=== PATIENT | female | born 1980 | race Caucasian/White ===

== ENCOUNTER 2019-12-14 07:34 | Day surgery (SDC) | payer OTHER ==
[~2019-12-14 07:34] MED LIST: RINGERS SOLUTION,LACTATED 1,000 ML IV ONE
[2019-12-14 08:18] LABS: EOSINOPHILS % (AUTO) 5.7 % (1.0-6.0); HEMATOCRIT 47.8 % (36-46); HEMOGLOBIN 15.8 g/dL (12.0-16.0); LYMPHOCYTES # (AUTO) 2.9 K/uL (1.0-4.8); LYMPHOCYTES % (AUTO) 39.9 % (22.0-44.0); MEAN CORPUSCULAR HEMOGLOBIN 29.3 pg (26.0-34.0); MEAN CORPUSCULAR HGB CONC 33.1 G/dL (31.0-37.0); MEAN CORPUSCULAR VOLUME 89 fL (80-100); MONOCYTES # (AUTO) 0.6 K/uL (0.1-1.0); MONOCYTES % (AUTO) 8.7 % (2.0-9.0); NEUTROPHILS # (AUTO) 3.3 K/uL (1.8-7.7); NEUTROPHILS % (AUTO) 44.7 % (40.0-70.0); PLATELET COUNT (AUTO) 235 K/uL (150-450); RED CELL DISTRIBUTION WIDTH 13.6 % (11.5-14.5)
[2019-12-14 08:27] LABS: ANION GAP 3 mmol/L (8-16); CALCIUM, TOTAL 9.7 mg/dL (8.8-10.5); CARBON DIOXIDE 32 mmol/L (22-29); CHLORIDE 103 mmol/L (98-107); CREATININE 0.88 mg/dL (0.60-1.30); GLOMERULAR FILTR. RATE CALC > 60 mL/min (>60); GLUCOSE,RANDOM 106 mg/dL (70-110); POTASSIUM 4.6 mmol/L (3.5-5.1); SODIUM SERUM 138 mmol/L (136-145); UREA NITROGEN, BLOOD 8 mg/dL (7-18)
[2019-12-14 08:32] LABS: PROTHROMBIN TIME 10.3 SEC (9.4-11.6)
[2019-12-14 08:34] LABS: ALANINE AMINOTRANSFERASE 199 U/L (12-78); ALBUMIN 3.8 g/dL (3.4-5.0); ALKALINE PHOSPHATASE 95 U/L (46-116); ASPARTATE AMINOTRANSFERASE 102 U/L (15-37); BILIRUBIN,TOTAL 0.5 mg/dL (0.1-1.0); TOTAL PROTEIN, SERUM 10.1 g/dL (6.4-8.2)
[2019-12-14] MEDS ORDERED: LEVE500S9 GT (08:37)
== END 2019-12-14 09:30 | disposition home or self-care (01) ==
LOC: SURGERY 07:34
PROVIDERS: ATTEND Dentist General Practice
DX: K02.9 Dental caries, unspecified (principal); Z53.8 Procedure and treatment not carried out for other reasons; Z90.49 Acquired absence of other specified parts of digestive tract; Z98.890 Other specified postprocedural states
CPT/HCPCS: 36415; 71045; 80053; 84703; 85025; 85610; 85730; 87426; 93005; J7120

== ENCOUNTER 2020-01-04 07:07 | Day surgery (SDC) | payer OTHER ==
[~2020-01-04] VITALS: Ht 165.1 cm; Wt 77.3 kg
[~2020-01-04 07:07] MED LIST changes: +LEVE500S9 GT; -RINGERS SOLUTION,LACTATED 1,000 ML IV ONE
[2020-01-04 07:49] LABS: COVID AG,FIA SOURCE NASOPHARYNGEAL
[2020-01-04] MEDS ORDERED: RINGERS SOLUTION,LACTATED 1,000 ML IV ONE ×2 (08:16→09:00)
[2020-01-04] MEDS ORDERED: AMPICILLIN SODIUM 1 GM/VIAL ONE (08:56)
[2020-01-04] MEDS ORDERED: SODIUM CHLORIDE 0.9% 100 ML ONE (08:56)
[2020-01-04] MEDS ORDERED: SODIUM CHLORIDE 0.9% 10 ML ONE (08:57)
[2020-01-04] MEDS ORDERED: DEXAMETHASONE SOD PHOS 4 MG/ML VIAL IVP ONE (12:00)
[2020-01-04] MEDS ORDERED: ROCURONIUM BROMIDE 10 MG/ML 5 ML VIAL IVP ONE (12:00)
[2020-01-04] MEDS ORDERED: NEOSTIGMINE METHYLSULFATE 1 MG/ML 10 ML VIAL IVP ONE (12:00)
[2020-01-04] MEDS ORDERED: FentaNYL CITRATE-PF 100 MCG/2 ML VIAL IVP ONE (12:00)
[2020-01-04] MEDS ORDERED: LIDOCAINE/PF 2% 5 ML VIAL INJ ONE (12:00)
[2020-01-04] MEDS ORDERED: ONDANSETRON HCL 4 MG/2 ML VIAL IVP ONE (12:00)
[2020-01-04] MEDS ORDERED: PROPOFOL 1% 20 ML VIAL IVP ONE (12:00)
[2020-01-04] MEDS ORDERED: GLYCOPYRROLATE 0.2 MG/ML VIAL IM ONE (12:00)
[2020-01-04] MEDS ORDERED: OXYGEN THERAPY IH SCH (20:00)
== END 2020-01-04 14:45 | disposition home or self-care (01) ==
LOC: SDS 07:07
PROVIDERS: ATTEND Dentist General Practice
DX: K05.30 Chronic periodontitis, unspecified (principal); E66.9 Obesity, unspecified; F41.9 Anxiety disorder, unspecified; Z87.820 Personal history of traumatic brain injury; K03.6 Deposits [accretions] on teeth; Z98.890 Other specified postprocedural states
CPT/HCPCS: 36415; 41899; 84703; 87426; 93005; J0290; J1100; J2405; J2704; J3010; J3490 ×3; J7050; J7120